=== PATIENT | female | born 1955 | race African-American/Black ===

== ENCOUNTER 2017-12-13 06:21 | Inpatient (IN) ==
[2017-12-13 07:58] LABS: Troponin I < 0.015 NG/ML (0.00-0.045)
[2017-12-13] MEDS ORDERED: MAGNESIUM SULF RIDER 4 GM in PREMIX 1 EACH IV PRN (09:22)
[2017-12-13] MEDS ORDERED: NITROGLYCERIN SL 0.4 MG TABLET SL PRN (09:25)
[2017-12-13] MEDS ORDERED: INFLUENZA VIRUS VACCINE 0.5 ML SYRINGE IM ONE (10:45)
[2017-12-13 10:52] LABS: Troponin I < 0.015 NG/ML (0.00-0.045)
[2017-12-13] MEDS ORDERED: CARVEDILOL 12.5 MG TABLET PO SCH ×2 (10:58→21:00)
[2017-12-13] MEDS ORDERED: TICAGRELOR 90 MG TABLET PO SCH ×2 (10:58→21:00)
[2017-12-13] MEDS ORDERED: LISINOPRIL 5 MG TABLET PO SCH (10:58)
[2017-12-13] MEDS ORDERED: FUROSEMIDE 40 MG TABLET PO SCH (10:58)
[2017-12-13 13:07] LABS: Troponin I < 0.015 NG/ML (0.00-0.045)
[2017-12-13] MEDS: FUROSEMIDE 40 MG TABLET PO SCH (13:58)
[2017-12-13] MEDS: CARVEDILOL 12.5 MG TABLET PO SCH ×2 (13:58→21:13)
[2017-12-13] MEDS: TICAGRELOR 90 MG TABLET PO SCH ×2 (13:58→21:14)
[2017-12-13] MEDS: LISINOPRIL 5 MG TABLET PO SCH (13:58)
[2017-12-13 16:54] LABS: Troponin I < 0.015 NG/ML (0.00-0.045)
[2017-12-13] MEDS: INSULIN NPH 100 UNIT/ML SUBCUT SCH (18:42)
[2017-12-13] MEDS ORDERED: CARVEDILOL 6.25 MG TABLET PO SCH (21:00)
[2017-12-13] MEDS: metFORMIN 500 MG TABLET PO SCH (21:12)
[2017-12-13] MEDS: ROSUVASTATIN 20 MG TABLET PO SCH (21:12)
[2017-12-14 04:13] LABS: Risk Ratio 1.82
[2017-12-14] MEDS: LORATADINE 10 MG TABLET PO SCH (08:40)
[2017-12-14] MEDS: CARVEDILOL 12.5 MG TABLET PO SCH ×2 (08:41→20:36)
[2017-12-14] MEDS: ASPIRIN EC 81 MG TABLET PO SCH (08:42)
[2017-12-14] MEDS: glipiZIDE 10 MG TABLET PO SCH (08:42)
[2017-12-14] MEDS: LISINOPRIL 5 MG TABLET PO SCH (08:43)
[2017-12-14] MEDS: MAGNESIUM OXIDE 400 MG TABLET PO SCH (08:44)
[2017-12-14] MEDS: FERROUS SULFATE 325 MG TABLET PO SCH (08:44)
[2017-12-14] MEDS: metFORMIN 500 MG TABLET PO SCH ×2 (08:45→20:36)
[2017-12-14] MEDS: MULTIVITAMIN (CENTRUM) TABLET PO SCH (08:46)
[2017-12-14] MEDS: FUROSEMIDE 40 MG TABLET PO SCH (08:46)
[2017-12-14] MEDS: INSULIN GLARGINE 100 UNIT/ML SUBCUT SCH (08:47)
[2017-12-14] MEDS: INSULIN NPH 100 UNIT/ML SUBCUT SCH (08:47)
[2017-12-14] MEDS: TICAGRELOR 90 MG TABLET PO SCH ×2 (08:47→20:36)
[2017-12-14] MEDS ORDERED: FUROSEMIDE 40 MG TABLET PO SCH (09:00)
[2017-12-14] MEDS ORDERED: LISINOPRIL 5 MG TABLET PO SCH (09:00)
[2017-12-14] MEDS ORDERED: MAGNESIUM SULF RIDER 2 GM in PREMIX 1 EACH IV PRN (11:41)
[2017-12-14] MEDS ORDERED: POTASSIUM CHLORIDE RIDER 10 MEQ in PREMIX 1 EACH IV PRN (11:41)
[2017-12-14] MEDS: ROSUVASTATIN 20 MG TABLET PO SCH (20:36)
[2017-12-15] MEDS ORDERED: DIAZEPAM 5 MG TABLET PO ONE (06:00)
[2017-12-15] MEDS ORDERED: diphenhydrAMINE CAP 25 MG CAPSULE PO ONE (06:00)
[2017-12-15] MEDS: TICAGRELOR 90 MG TABLET PO SCH ×2 (08:45→21:05)
[2017-12-15] MEDS: FERROUS SULFATE 325 MG TABLET PO SCH (08:45)
[2017-12-15] MEDS: MULTIVITAMIN (CENTRUM) TABLET PO SCH (08:45)
[2017-12-15] MEDS: MAGNESIUM OXIDE 400 MG TABLET PO SCH (08:45)
[2017-12-15] MEDS: ASPIRIN EC 81 MG TABLET PO SCH (08:45)
[2017-12-15] MEDS: CARVEDILOL 12.5 MG TABLET PO SCH ×2 (08:45→21:05)
[2017-12-15] MEDS: LORATADINE 10 MG TABLET PO SCH (08:46)
[2017-12-15] MEDS: metFORMIN 500 MG TABLET PO SCH ×2 (08:46→21:06)
[2017-12-15] MEDS: INSULIN GLARGINE 100 UNIT/ML SUBCUT SCH (08:46)
[2017-12-15] MEDS: INSULIN NPH 100 UNIT/ML SUBCUT SCH ×3 (08:46→18:33)
[2017-12-15] MEDS: glipiZIDE 10 MG TABLET PO SCH ×2 (08:46→14:17)
[2017-12-15] MEDS: FUROSEMIDE 40 MG TABLET PO SCH (08:47)
[2017-12-15] MEDS: LISINOPRIL 5 MG TABLET PO SCH (08:47)
[2017-12-15 09:11] LABS: Basophils % 0.6 % (0.0-0.8); Eosinophils # 0.1 10*3/uL (0.0-0.87); Eosinophils % 1.8 % (0.00-10.9); Hematocrit 33.2 VOL% (35.7-47.0); Hemoglobin 10.6 GM/DL (12.0-16.0); Immature Granulocytes % 0.6 %; Immature Granulocytes Absolute 0.04 #; Lymphocytes # 1.7 10*3/uL (1.4-4.0); Lymphocytes % 23.4 % (21.3-54.2); Mean Corpuscular HGB Conc 31.9 GM/DL (32-36); Mean Corpuscular Hemoglobin 29 PG (27-34); Mean Corpuscular Volume 91.2 FL (87-102); Mean Platelet Volume 11.2 FL (9.6-12.0); Monocytes # 0.5 10*3/uL (0.11-0.8); Monocytes % 6.3 % (1.7-12.7); Neutrophils # 4.8 10*3/uL (1.4-7.4); Neutrophils % 67.3 % (38.7-73.9); Platelet Count 208 T/CUMM (130-400); Red Blood Count 3.64 MC/CUMM (3.8-5.5); White Blood Count 7.2 T/CUMM (4-12)
[2017-12-15 09:22] LABS: INR 1.1; PT Patient Result 11.4 SECS
[2017-12-15 09:37] LABS: Calcium 8.6 MG/DL (8.5-10.1); Osmolality,Calculated 284.5 MOS/KG (273-304)
[2017-12-15] MEDS ORDERED: HEPARIN/NACL 0.9% 2 UNITS/ML 1,000 ML IV ONE (09:46)
[2017-12-15] MEDS: MAGNESIUM SULF RIDER 2 GM in PREMIX 1 EACH IV PRN (09:47)
[2017-12-15] MEDS ORDERED: MIDAZOLAM 2 MG/2 ML VIAL ONE (09:57)
[2017-12-15] MEDS ORDERED: HYDROmorphone 2 MG/1 ML VIAL ONE (09:57)
[2017-12-15] MEDS ORDERED: NITROGLYCERIN DRIP 50 MG/250 ML BOTTLE IV ONE (10:01)
[2017-12-15] MEDS ORDERED: VERAPAMIL 5 MG/2 ML VIAL ONE (10:01)
[2017-12-15] MEDS ORDERED: ENOXAPARIN 60 MG/0.6 ML SYRINGE ONE (10:01)
[2017-12-15] MEDS ORDERED: ADENOSINE 6 MG/2 ML VIAL ONE (10:16)
[2017-12-15] MEDS ORDERED: TICAGRELOR 90 MG TABLET ONE (11:19)
[2017-12-15] MEDS ORDERED: SODIUM CHLORIDE 0.9% 1,000 ML IV SCH (11:30)
[2017-12-15] MEDS ORDERED: ACETAMINOPHEN 325 MG TABLET PO PRN (14:13)
[2017-12-15] MEDS: ROSUVASTATIN 20 MG TABLET PO SCH (21:05)
[2017-12-16 02:33] LABS: Basophils % 0.5 % (0.0-0.8); Eosinophils # 0.1 10*3/uL (0.0-0.87); Eosinophils % 1.7 % (0.00-10.9); Hemoglobin 9.3 GM/DL (12.0-16.0); Immature Granulocytes % 0.4 %; Immature Granulocytes Absolute 0.03 #; Lymphocytes # 1.3 10*3/uL (1.4-4.0); Mean Corpuscular Hemoglobin 28 PG (27-34); Mean Corpuscular Volume 91.2 FL (87-102); Mean Platelet Volume 11.5 FL (9.6-12.0); Monocytes # 0.5 10*3/uL (0.11-0.8); Monocytes % 5.9 % (1.7-12.7); Neutrophils # 5.9 10*3/uL (1.4-7.4); Neutrophils % 75.5 % (38.7-73.9); Platelet Count 194 T/CUMM (130-400); Red Blood Count 3.29 MC/CUMM (3.8-5.5); Red Cell Distribution Width 15.1 % (9.3-17.3); White Blood Count 7.8 T/CUMM (4-12)
[2017-12-16 02:49] LABS: Calcium 7.5 MG/DL (8.5-10.1); Osmolality,Calculated 286.3 MOS/KG (273-304); Potassium 3.7 MMOL/L (3.5-5.1)
[2017-12-16 03:42] LABS: Blood Urea Nitrogen 22 MG/DL (7-18); Calcium 6.9 MG/DL (8.5-10.1); Glucose 136 MG/DL (74-106); Potassium 3.4 MMOL/L (3.5-5.1); Sodium 143 MMOL/L (136-145)
[2017-12-16 03:51] LABS: Troponin I 0.439 NG/ML (0.00-0.045)
[2017-12-16] MEDS: LISINOPRIL 5 MG TABLET PO SCH (08:54)
[2017-12-16] MEDS: ASPIRIN EC 81 MG TABLET PO SCH (08:54)
[2017-12-16] MEDS: FUROSEMIDE 40 MG TABLET PO SCH (08:54)
[2017-12-16] MEDS: MAGNESIUM OXIDE 400 MG TABLET PO SCH (08:54)
[2017-12-16] MEDS: glipiZIDE 10 MG TABLET PO SCH (08:54)
[2017-12-16] MEDS: TICAGRELOR 90 MG TABLET PO SCH (08:54)
[2017-12-16] MEDS: FERROUS SULFATE 325 MG TABLET PO SCH (08:54)
[2017-12-16] MEDS: CARVEDILOL 12.5 MG TABLET PO SCH (08:55)
[2017-12-16] MEDS: MULTIVITAMIN (CENTRUM) TABLET PO SCH (08:55)
[2017-12-16] MEDS: INSULIN NPH 100 UNIT/ML SUBCUT SCH ×2 (08:55→09:08)
[2017-12-16] MEDS: LORATADINE 10 MG TABLET PO SCH (08:55)
[2017-12-16] MEDS: metFORMIN 500 MG TABLET PO SCH (08:55)
[2017-12-16] MEDS: INSULIN GLARGINE 100 UNIT/ML SUBCUT SCH ×2 (08:57→09:03)
[2017-12-16] MEDS: MAGNESIUM SULF RIDER 2 GM in PREMIX 1 EACH IV PRN (08:58)
[2017-12-16 11:33] VITALS: BP 119/63
== END 2017-12-16 14:15 | disposition home or self-care (01) | DRG 175 ==
LOC: EDBD → EDUNIT# → N.EDINP 06:21 → N.ED 06:21 → N.TELES 09:46
PROVIDERS: ADMIT Internal Medicine Cardiovascular Disease; ATTEND Internal Medicine Cardiovascular Disease
PROC: CLCCHCL (ICD-10-PCS; 2017-12-15 10:15)

== ENCOUNTER 2021-10-14 13:19 | Observation (INO) ==
[2021-10-14] MEDS ORDERED: ASPIRIN 325 MG TABLET PO STA (13:43)
[2021-10-14] MEDS: NITROGLYCERIN SL 0.4 MG TABLET SL PRN ×2 (13:48→13:54)
[2021-10-14 13:50] LABS: Basophils # 0.1 10*3/uL (0.0-0.2); Eosinophils # 0.1 10*3/uL (0.0-0.87); Eosinophils % 1.8 % (0.00-10.9); Hematocrit 34.4 VOL% (35.7-47.0); Hemoglobin 10.8 GM/DL (12.0-16.0); Immature Granulocytes % 0.4 %; Immature Granulocytes Absolute 0.02 #; Lymphocytes # 1.8 10*3/uL (1.4-4.0); Lymphocytes % 34.6 % (21.3-54.2); Mean Corpuscular HGB Conc 31.4 GM/DL (32-36); Mean Corpuscular Volume 89.8 FL (87-102); Mean Platelet Volume 10.6 FL (9.6-12.0); Monocytes # 0.3 10*3/uL (0.11-0.8); Monocytes % 6.3 % (1.7-12.7); Neutrophils % 55.9 % (38.7-73.9); Platelet Count 218 T/CUMM (130-400); Red Blood Count 3.83 MC/CUMM (3.8-5.5); Red Cell Distribution Width 16.3 % (9.3-17.3); White Blood Count 5.1 T/CUMM (4-12)
[2021-10-14] MEDS ORDERED: ASPIRIN CHEW 81 MG TABLET PO ONE (13:51)
[2021-10-14 14:15] LABS: Albumin 3.5 G/DL (3.4-5.0); Bilirubin,Total 0.4 MG/DL (0.20-1.00); Osmolality,Calculated 280.7 MOS/KG (273-304); Potassium 3.8 MMOL/L (3.5-5.1); Total Protein 6.9 G/DL (6.4-8.2)
[2021-10-14] MEDS ORDERED: ENOXAPARIN 100 MG/ML SYRINGE SUBCUT STA (15:46)
[2021-10-14] MEDS ORDERED: GLUCAGON 1 MG VIAL IM PRN ×2 (16:41)
[2021-10-14] MEDS ORDERED: ACETAMINOPHEN 325 MG TABLET PO PRN (16:41)
[2021-10-14] MEDS ORDERED: ONDANSETRON 4 MG/2 ML VIAL IV PRN (16:41)
[2021-10-14] MEDS ORDERED: DEXTROSE 50% 25 GM/50 ML VIAL IV PRN (16:41)
[2021-10-14] MEDS ORDERED: DEXTROSE 10% 250 ML BAG IV PRN (16:49)
[2021-10-14] MEDS ORDERED: FUROSEMIDE 40 MG TABLET PO PRN (16:50)
[2021-10-14] MEDS ORDERED: MAGNESIUM SULF RIDER 4 GM/100 ML PREMIX IV PRN (16:53)
[2021-10-14] MEDS ORDERED: MAGNESIUM SULF RIDER 2 GM/50 ML PREMIX IV PRN (16:53)
[2021-10-14] MEDS ORDERED: ALUM/MAG/SIMETH/LIDO VISC 1:1 30 ML BOTTLE PO ONE (18:42)
[2021-10-14 19:40] LABS: Risk Ratio 1.97; Thyroid Stimulating Hormone 1.57 uIU/ml (0.358-3.74); VLDL Cholesterol 10.2 MG/DL
[2021-10-14] MEDS: INSULIN LISPRO 100 UNIT/ML SUBCUT SCH (20:47)
[2021-10-14] MEDS ORDERED: ROSUVASTATIN 20 MG TABLET PO SCH (21:00)
[2021-10-15 04:47] LABS: Basophils # 0.1 10*3/uL (0.0-0.2); Eosinophils # 0.2 10*3/uL (0.0-0.87); Eosinophils % 2.9 % (0.00-10.9); Hematocrit 33.3 VOL% (35.7-47.0); Hemoglobin 10.4 GM/DL (12.0-16.0); Immature Granulocytes % 0.4 %; Immature Granulocytes Absolute 0.02 #; Lymphocytes # 1.9 10*3/uL (1.4-4.0); Lymphocytes % 36.6 % (21.3-54.2); Mean Corpuscular HGB Conc 31.2 GM/DL (32-36); Mean Corpuscular Volume 89.3 FL (87-102); Monocytes # 0.4 10*3/uL (0.11-0.8); Monocytes % 7.9 % (1.7-12.7); Neutrophils % 51.2 % (38.7-73.9); Platelet Count 205 T/CUMM (130-400); Red Blood Count 3.73 MC/CUMM (3.8-5.5); Red Cell Distribution Width 16.3 % (9.3-17.3); White Blood Count 5.2 T/CUMM (4-12)
[2021-10-15 05:20] LABS: Alanine Aminotransferase 14 U/L (13-56); Alkaline Phosphatase 82 U/L (45-117); Aspartate Amino Transferase 19 U/L (0-37); Bilirubin,Total < 0.39 MG/DL (0.20-1.00); Blood Urea Nitrogen 16 MG/DL (7-18); Calcium 9.1 MG/DL (8.5-10.1); Carbon Dioxide 26 MMOL/L (21-32); Chloride 108 MMOL/L (98-107); Glucose 156 MG/DL (74-106); Osmolality,Calculated 280.5 MOS/KG (273-304); Potassium 3.7 MMOL/L (3.5-5.1); Sodium 139 MMOL/L (136-145); Total Protein 6.6 G/DL (6.4-8.2)
[2021-10-15] MEDS: INSULIN LISPRO 100 UNIT/ML SUBCUT SCH ×2 (07:36→11:24)
[2021-10-15] MEDS ORDERED: ASPIRIN EC 81 MG TABLET PO SCH (09:00)
[2021-10-15] MEDS ORDERED: MAGNESIUM OXIDE 400 MG TABLET PO SCH (09:00)
[2021-10-15] MEDS ORDERED: CLOPIDOGREL 75 MG TABLET PO SCH (09:00)
[2021-10-15] MEDS ORDERED: ZINC GLUCONATE 50 MG TABLET PO SCH (09:00)
[2021-10-15] MEDS ORDERED: FERROUS SULFATE 325 MG TABLET PO SCH (09:00)
[2021-10-15] MEDS ORDERED: lisinopriL 10 MG TABLET PO SCH (09:00)
[2021-10-15] MEDS ORDERED: DOCUSATE SODIUM 100 MG CAPSULE PO SCH (09:00)
[2021-10-15] MEDS ORDERED: NON-FORMULARY MEDICATION (Empagliflozin [Jardiance] 10 mg Tablet) PO SCH (09:00)
[2021-10-15] MEDS ORDERED: KETOROLAC 30 MG/1 ML VIAL IV ONE (10:31)
[2021-10-15 11:54] VITALS: BP 145/78
[2021-10-15] MEDS ORDERED: ENOXAPARIN 100 MG/ML SYRINGE SUBCUT SCH (17:00)
[2021-10-15] MEDS ORDERED: ENOXAPARIN 40 MG/0.4 ML SYRINGE SUBCUT SCH (17:00)
== END 2021-10-15 14:59 | disposition home or self-care (01) ==
LOC: N.EDINP 13:19 → N.ED 13:19 → SUATTDRO 16:41 → N.2W 17:20
PROVIDERS: ADMIT Family Medicine; ATTEND Internal Medicine